=== PATIENT | male | born 1970 | race Caucasian/White ===

== ENCOUNTER 2025-10-08 06:31 | Day surgery (SDC) | payer OTHER, SELFPAY | END 2025-10-08 09:37 | disposition home or self-care (01) | LOC: GI 06:31 | PROVIDERS: ATTENDING PHYSICIAN Internal Medicine Gastroenterology | DX: Z12.11 Encounter for screening for malignant neoplasm of colon (principal); K64.8 Other hemorrhoids; D12.0 Benign neoplasm of cecum; Z86.0100 Personal history of colon polyps, unspecified | CPT/HCPCS: 45385; 88305 ==